=== PATIENT | male | born 1980 | race African-American/Black ===

== ENCOUNTER 2016-09-20 21:12 | Inpatient (IN) | payer SELFPAY ==
[~2016-09-20] VITALS: Ht 182.9 cm; Wt 71.7 kg
[2016-09-20 22:51] LABS: HEMOGLOBIN. 14.7 g/dL (14.0-18.0); MEAN CORPUSCULAR HEMOGLOBIN 29.1 pg (28.0-32.0); MEAN CORPUSCULAR HGB CONC 32.7 g/dL (31.0-37.0); MEAN CORPUSCULAR VOLUME 89.1 fL (80.0-94.0); MEAN PLATELET VOLUME 6.8 fl (7.4-10.4); PLATELET 311 x1000/uL (130-400); RED BLOOD CELL COUNT 5.05 mill/uL (4.7-6.1); RED CELL DISTRIBUTION WIDTH 14.2 % (11.6-14.6); WHITE BLOOD COUNT 13.6 x1000/uL (4.5-11.0)
[2016-09-20 22:54] LABS: DIFFERENTIAL COMMENT 1
[2016-09-20 22:59] LABS: PARTIAL THROMBOPLASTIN TIME 28.7 sec (24.0-34.0); PROTHROMBIN TIME 10.8 sec
[2016-09-20 23:01] LABS: CHLORIDE 103 mEq/L (98-107); INDEX HEMOLYSI 1 (1-3); INDEX ICTERIC 1 (1-4); INDEX LIPEMIC 1 (1-3)
[2016-09-20 23:07] LABS: ALANINE AMINOTRANSFERASE 18 IU/L (13-61); ALBUMIN 3.3 g/dL (3.4-5.0); ANION GAP 16; CALCIUM 9.6 mg/dL (8.5-10.1); CARBON DIOXIDE 24 mEq/L (21-32); UREA NITROGEN BLOOD 10 mg/dL (7-21)
[2016-09-20 23:09] LABS: eGFR > 60 mL/min (>60)
[2016-09-20 23:12] LABS: LACTIC ACID 5.4 mmol/L (0.4-2.0)
[2016-09-20 23:21] LABS: ANISOCYTOSIS 1+; PLATELET ESTIMATE NORMAL
[2016-09-20] MEDS ORDERED: LORAZEPAM 2MG/ML CPJ ONE (23:40)
[2016-09-20] MEDS ORDERED: LEVETIRACETAM 500MG PREMIX 100 ML IV ONE (23:45)
[2016-09-20] MEDS ORDERED: SODIUM CHLORIDE 0.9% 1,000 ML IV ONE (23:45)
[2016-09-20] MEDS ORDERED: LORAZEPAM 2MG/ML CPJ IV NR (23:45)
[2016-09-21] MEDS ORDERED: LORAZEPAM 2MG/ML CPJ IV ONE (00:15)
[2016-09-21 03:33] VITALS: BP 124/82
[2016-09-21 03:34] VITALS: BP 124/82
[2016-09-21] MEDS ORDERED: LORAZEPAM 2MG/ML CPJ IV PRN (05:30)
[2016-09-21] MEDS: SODIUM CHLORIDE 0.9% 1,000 ML IV SCH ×2 (05:56→18:43)
[2016-09-21] MEDS: PHENYTOIN SODIUM EXTENDED 100MG CAPSULE PO SCH ×3 (06:00→21:29)
[2016-09-21 08:00] VITALS: BP 106/69
[2016-09-21 08:49] LABS: BASOPHILS % 0.7 % (0.0-2.0); EOSINOPHILS % 0.1 % (0.0-5.0); HEMATOCRIT. 40.6 % (42.0-52.0); HEMOGLOBIN. 13.7 g/dL (14.0-18.0); LYMPHOCYTES % 9.8 % (20.0-50.0); MEAN CORPUSCULAR HEMOGLOBIN 29.8 pg (28.0-32.0); MEAN CORPUSCULAR HGB CONC 33.7 g/dL (31.0-37.0); MEAN CORPUSCULAR VOLUME 88.5 fL (80.0-94.0); MEAN PLATELET VOLUME 7.1 fl (7.4-10.4); MONOCYTES % 9.9 % (2.0-8.0); NEUTROPHILS % 79.5 % (40.0-76.0); PLATELET 274 x1000/uL (130-400); RED BLOOD CELL COUNT 4.59 mill/uL (4.7-6.1); RED CELL DISTRIBUTION WIDTH 14.4 % (11.6-14.6); WHITE BLOOD COUNT 10.1 x1000/uL (4.5-11.0)
[2016-09-21 08:58] LABS: ANION GAP 13; CALCIUM 8.8 mg/dL (8.5-10.1); CARBON DIOXIDE 24 mEq/L (21-32); CHLORIDE 110 mEq/L (98-107); INDEX HEMOLYSI 1 (1-3); INDEX ICTERIC 1 (1-4); INDEX LIPEMIC 1 (1-3); UREA NITROGEN BLOOD 9 mg/dL (7-21); eGFR > 60 mL/min (>60)
[2016-09-21 12:00] VITALS: BP 124/79
[2016-09-21 14:16] LABS: CLARITY URINE CLEAR (CLEAR); COLOR URINE YELLOW (YELLOW); GLUCOSE URINE NEGATIVE (NEGATIVE); KETONES URINE NEGATIVE (NEGATIVE); LEUKOCYTE ESTERASE URINE NEGATIVE (NEGATIVE); NITRITE URINE NEGATIVE (NEGATIVE); OCCULT BLOOD URINE NEGATIVE (NEGATIVE); PROTEIN URINE NEGATIVE (NEGATIVE); SPECIFIC GRAVITY URINE 1.015 (1.005-1.030)
[2016-09-21 14:32] LABS: *AMPHETAMINES SCREEN URINE NEGATIVE (NEGATIVE); *BARBITURATES SCREEN URINE NEGATIVE (NEGATIVE); *BENZODIAZEPINES SCREEN URINE NEGATIVE (NEGATIVE); *COCAINE SCREEN URINE NEGATIVE (NEGATIVE); CANNABINOID URINE SCREEN PRESUMTIVE POSITIVE (NEGATIVE); ECSTASY MDMA SCREEN URINE NEGATIVE (NEGATIVE); METHADONE URINE SCREEN NEGATIVE (NEGATIVE); OPIATES URINE SCREEN NEGATIVE (NEGATIVE); PHENCYCLIDINE URINE SCREEN NEGATIVE (NEGATIVE)
[2016-09-21 16:00] VITALS: BP 115/75
[2016-09-21 20:00] VITALS: BP 118/80
[2016-09-22] VITALS: BP 107/79
[2016-09-22 04:00] VITALS: BP 126/87
[2016-09-22] MEDS: PHENYTOIN SODIUM EXTENDED 100MG CAPSULE PO SCH (05:49)
[2016-09-22 08:00] VITALS: BP 129/88
[2016-09-22] MEDS: SODIUM CHLORIDE 0.9% 1,000 ML IV SCH (08:23)
[2016-09-22 10:27] VITALS: BP 121/85
[2016-09-22 10:30] VITALS: BP 121/85
== END 2016-09-22 11:21 | disposition home or self-care (01) | DRG 53 ==
LOC: ER 21:13 → 7WST 09-21 00:24
PROVIDERS: ADMIT Hospitalist; ATTEND Hospitalist
DX: R56.9 Unspecified convulsions (principal); F12.90 Cannabis use, unspecified, uncomplicated; W06.XXXA Fall from bed, initial encounter; Z88.6 Allergy status to analgesic agent
CPT/HCPCS: 36415; 70450; 70551; 80048; 80053; 80305; 81003; 83605; 85025; 85610; 85730; 87040; 96365; 96375; 96376; 99285; J1953; J2060; J7030

== ENCOUNTER 2019-07-15 01:52 | Emergency (ER) | payer MEDICAID, OTHER ==
[~2019-07-15] VITALS: Ht 177.8 cm; Wt 77.0 kg
[2019-07-15] MEDS ORDERED: METHYLPREDNISOLONE SOD SUCC 125 MG/2 ML VIAL IV STA (02:00)
[2019-07-15] MEDS ORDERED: IPRATROPIUM BROMIDE (0.02%) 0.5MG/2.5ML NEB HHN STA (02:00)
[2019-07-15] MEDS ORDERED: MAGNESIUM 2 G PREMIX 50 ML IV ONE (02:00)
[2019-07-15] MEDS: ALBUTEROL (0.083%) 2.5MG/3ML NEB HHN SCH (02:08)
[2019-07-15] MEDS ORDERED: ONDANSETRON HCL 4MG/2ML INJ IV ONE (02:30)
[2019-07-15] MEDS ORDERED: MORPHINE SULFATE 4 MG/ML CPJ (NOT FOR IM USE) IV ONE (02:30)
[2019-07-15 02:55] LABS: HEMATOCRIT. 35.8 % (42.0-52.0); MEAN CORPUSCULAR HEMOGLOBIN 31.2 pg (28.0-32.0); MEAN CORPUSCULAR VOLUME 92.9 fL (80.0-94.0); MEAN PLATELET VOLUME 7.4 fl (7.4-10.4); PLATELET 333 x1000/uL (130-400); RED BLOOD CELL COUNT 3.85 mill/uL (4.7-6.1); RED CELL DISTRIBUTION WIDTH 14.7 % (11.6-14.6)
[2019-07-15 03:03] LABS: PARTIAL THROMBOPLASTIN TIME 25.7 sec (23.4-31.0); PROTHROMBIN TIME 10.7 sec (9.6-11.0)
[2019-07-15 03:10] LABS: CHLORIDE 103 mEq/L (98-107)
[2019-07-15 03:52] LABS: *AMPHETAMINES SCREEN URINE NEGATIVE (NEGATIVE); *COCAINE SCREEN URINE NEGATIVE (NEGATIVE); OPIATES URINE SCREEN NEGATIVE (NEGATIVE)
[2019-07-15 03:53] LABS: *BENZODIAZEPINES SCREEN URINE NEGATIVE (NEGATIVE); CANNABINOID URINE SCREEN PRESUMTIVE POSITIVE (NEGATIVE); METHADONE URINE SCREEN NEGATIVE (NEGATIVE); PHENCYCLIDINE URINE SCREEN NEGATIVE (NEGATIVE)
[2019-07-15 03:54] LABS: *BARBITURATES SCREEN URINE NEGATIVE (NEGATIVE)
[2019-07-15] MEDS ORDERED: SODIUM CHLORIDE 0.9% 1000ML BAG (SEPSIS BOLUS) IV ONE (04:30)
[2019-07-15 04:41] LABS: ETHANOL BLOOD < 10 mg/dL
[2019-07-15] MEDS ORDERED: CEFTRIAXONE 2 G in DEXTROSE 5% WATER 50 ML IV SCH (05:00)
[2019-07-15 05:02] LABS: PLATELET ESTIMATE NORMAL
[2019-07-15] MEDS ORDERED: IOHEXOL-300 100 ML BOTTLE ONE (05:33)
[2019-07-15 08:26] VITALS: BP 121/73
== END 2019-07-15 09:51 | disposition short-term general hospital (02) ==
LOC: ER 01:52
DX: R04.2 Hemoptysis (principal); R06.02 Shortness of breath; J44.1 Chronic obstructive pulmonary disease with (acute) exacerbation; R91.1 Solitary pulmonary nodule; R56.9 Unspecified convulsions; M41.9 Scoliosis, unspecified; F17.200 Nicotine dependence, unspecified, uncomplicated; Z88.6 Allergy status to analgesic agent
CPT/HCPCS: 36415; 71045; 71260; 80053; 80305; 80320; 83605; 83880; 84484; 85025; 85610; 85730; 86850; 86900; 86901; 87804; 93005; 94640; 96365; 96367; 96375; 99285; J0696; J2930; J3475; J7060; J7610; Q9967; Z7610; G0480